=== PATIENT | male | born 2000 | race Caucasian/White ===

== ENCOUNTER 2022-02-03 01:10 | Emergency (ER) | payer SELFPAY ==
[2022-02-03] MEDS ORDERED: KETOROLAC 30 MG/ML VIAL IVP STA (01:33)
[2022-02-03 01:40] LABS: BASOPHILS % (AUTO) 0 % (0-10); EOSINOPHILS # (AUTO) 0.2 10^3/uL (0.0-0.3); EOSINOPHILS % (AUTO) 2 % (0-10); HEMATOCRIT 43 % (40-54); HEMOGLOBIN 14.3 g/dL (13.3-17.7); LYMPHOCYTES # (AUTO) 4.5 10^3/uL (1.0-4.0); LYMPHOCYTES % (AUTO) 47 % (12-44); MEAN CORPUSCULAR HEMOGLOBIN 30 pg (25-34); MEAN CORPUSCULAR HGB CONC 34 g/dL (32-36); MEAN CORPUSCULAR VOLUME 88 fL (80-99); MEAN PLATELET VOLUME 11.1 fL (9.0-12.2); MONOCYTES # (AUTO) 0.6 10^3/uL (0.0-1.0); MONOCYTES % (AUTO) 6 % (0-12); NEUTROPHILS # (AUTO) 4.3 10^3/uL (1.8-7.8); NEUTROPHILS % (AUTO) 45 % (42-75); PLATELET COUNT 260 10^3/uL (130-400); WHITE BLOOD COUNT 9.6 10^3/uL (4.3-11.0)
--- NOTE | 2022-02-03 01:43 | ED Back Pain ---
General Chief Complaint: Back Problems Stated Complaint: VOMITING,ABD PAIN Source of Information: Patient History of Present Illness Date Seen by Provider: Feb 03, 2022 Time Seen by Provider: 01:25 Initial Comments PT ARRIVES VIA POV FROM HOME STATES HE WAS AT WORK AT [employer], AND ABOUT 5 HOURS AGO, HE BEGAN TO HAVE SEVERE SHARP STABBING PAIN IN LEFT FLANK RADIATING TO LLQ AN HOUR AGO, HE BEGAN TO HAVE NAUSEA/VOMITING NO DIARRHEA NO FEVER NO PROBLEMS URINATING, VOIDED JUST PRIOR TO ARRIVAL HAD FELT FINE ALL DAY NO RECENT ILLNESS NO CHRONIC MEDICAL PROBLEMS AND NO DAILY MEDICATIONS PT STATES HE HAS HAD A COUPLE OF EPISODES SIMILAR TO THIS, BUT NOT NEARLY PAINFUL AND DID NOT LAST VERY LONG--NEVER SOUGHT CARE STATES HIS DAD HAS HISTORY OF KIDNEY STONES. Allergies and Home Medications Allergies Coded Allergies: No Known Drug Allergies (Unverified , 02/03/22) Patient Home Medication List Home Medication List Reviewed: Yes Ciprofloxacin HCl (Ciprofloxacin HCl) 500 Mg Tablet, 500 MG PO BID Prescribed by: JAE TOTH on 02/03/22342 Hydrocodone Bit/Acetaminophen (HYDROcodone/APAP 7.5/325 TAB) 1 Ea Tablet, 1 EA PO Q4-6 PRN for PAIN Prescribed by: JAE TOTH on 02/03/22342 Ketorolac Tromethamine (Ketorolac Tromethamine) 10 Mg Tablet, 10 MG PO Q6H Prescribed by: JAE TOTH on 02/03/22342 Ondansetron (Ondansetron Odt) 8 Mg Tab.rapdis, 8 MG PO Q6H Prescribed by: JAE TOTH on 02/03/22342 Tamsulosin HCl (Flomax) 0.4 Mg Cap, 0.4 MG PO DAILY Prescribed by: JAE TOTH on 02/03/22342 Review of Systems Constitutional: diaphoresis, malaise, weakness EENTM: no symptoms reported Respiratory: no symptoms reported Cardiovascular: no symptoms reported Gastrointestinal: see HPI, abdominal pain, nausea, vomiting Genitourinary: see HPI (FLANK PAIN ) Musculoskeletal: see HPI, back pain Skin: no symptoms reported Psychiatric/Neurological: No Symptoms Reported Past Wzadlmd-Tmvsiq-Hvszdh Hx Patient Social History Tobacco Use?: No Use of E-Cig and/or Vaping dev: Yes E-Cig or Vaping type used: Nicotine Use of E-Cig and/or Vaping Rafael: Current Everyday User Substance use?: No Alcohol Use?: No Past Medical History Surgeries: No Respiratory: No Cardiac: No Neurological: No Genitourinary: No Gastrointestinal: No Musculoskeletal: No Endocrine: No HEENT: No Cancer: No Psychosocial: No Integumentary: No Blood Disorders: No Physical Exam Vital Signs Vital Signs - First Documented 02/03/22 01:24 Temp 36.8 Pulse 95 Resp 16 B/P (MAP) 145/97 (113) Pulse Ox 96 O2 Delivery Room Air Capillary Refill : Height, Weight, BMI Height: '" Weight: lbs. oz. kg; BMI Method: General Appearance: WD/WN, Thin, Other (LOOKS ILL--VERY PALE, DIAPHORETIC, SKIN COOL, LETHARGIC, ACTIVELY DRY HEAVING. ) Neck: Normal Inspection Cardiovascular: Regular Rate, Rhythm, No Murmur Respiratory: Lungs Clear Gastrointestinal: Soft, Tenderness (LEFT FLANK TO LLQ TENDERNESS) Back: CVA Tenderness (L) Extremity: Normal Inspection Neurologic/Psychiatric: Alert, Oriented x3, No Motor/Sensory Deficits, deputy director of nursing II- XII Norm as Tested Skin: Cool, Diaphoresis, Pallor Progress/Results/Core Measures Results/Orders Lab Results Laboratory Tests Test 02/03/22 01:30 02/03/22 03:30 Range/Units White Blood Count 9.6 4.3-11.0 10^3/uL Red Blood Count 4.85 4.30-5.52 10^6/uL Hemoglobin 14.3 13.3-17.7 g/dL Hematocrit 43 40-54 % Mean Corpuscular Volume 88 80-99 fL Mean Corpuscular Hemoglobin 30 25-34 pg Mean Corpuscular Hemoglobin Concent 34 32-36 g/dL Red Cell Distribution Width 12.6 10.0-14.5 % Platelet Count 260 130-400 10^3/uL Mean Platelet Volume 11.1 9.0-12.2 fL Immature Granulocyte % (Auto) 0 % Neutrophils (%) (Auto) 45 42-75 % Lymphocytes (%) (Auto) 47 H 12-44 % Monocytes (%) (Auto) 6 0-12 % Eosinophils (%) (Auto) 2 0-10 % Basophils (%) (Auto) 0 0-10 % Neutrophils # (Auto) 4.3 1.8-7.8 10^3/uL Lymphocytes # (Auto) 4.5 H 1.0-4.0 10^3/uL Monocytes # (Auto) 0.6 0.0-1.0 10^3/uL Eosinophils # (Auto) 0.2 0.0-0.3 10^3/uL Basophils # (Auto) 0.0 0.0-0.1 10^3/uL Immature Granulocyte # (Auto) 0.0 0.0-0.1 10^3/uL Sodium Level 143 135-145 MMOL/L Potassium Level 3.1 L 3.6-5.0 MMOL/L Chloride Level 107 98-107 MMOL/L Carbon Dioxide Level 20 L 21-32 MMOL/L Anion Gap 16 H 5-14 MMOL/L Blood Urea Nitrogen 7 7-18 MG/DL Creatinine 1.11 0.60-1.30 MG/DL Estimat Glomerular Filtration Rate 97 BUN/Creatinine Ratio 6 Glucose Level 152 H 70-105 MG/DL Calcium Level 9.7 8.5-10.1 MG/DL Corrected Calcium 8.5-10.1 MG/DL Total Bilirubin 1.9 H 0.1-1.0 MG/DL Aspartate Amino Transf (AST/SGOT) 12 5-34 U/L Alanine Aminotransferase (ALT/SGPT) 29 0-55 U/L Alkaline Phosphatase 58 40-136 U/L Total Protein 7.6 6.4-8.2 GM/DL Albumin 4.9 H 3.2-4.5 GM/DL Amylase Level 29 25-125 U/L Lipase 7 L 8-78 U/L Influenza Type A (RT-PCR) Not Detected Not Detecte Influenza Type B (RT-PCR) Not Detected Not Detecte SARS-CoV-2 RNA (RT-PCR) Not Detected Not Detecte Urine Color YELLOW Urine Clarity CLEAR Urine pH 7.5 5-9 Urine Specific [place] 1.020 1.016-1.022 Urine Protein NEGATIVE NEGATIVE Urine Glucose (UA) TRACE H NEGATIVE Urine Ketones TRACE H NEGATIVE Urine Nitrite NEGATIVE NEGATIVE Urine Bilirubin NEGATIVE NEGATIVE Urine Urobilinogen 0.2 < = 1.0 MG/DL Urine Leukocyte Esterase NEGATIVE NEGATIVE Urine RBC (Auto) 3+ H NEGATIVE Urine RBC 5-10 H /HPF Urine WBC NONE /HPF Urine Squamous Epithelial Cells RARE /HPF Urine Crystals PRESENT H /LPF Urine Amorphous Sediment LARGE SAUNDRA PHOSPHATE H /LPF Urine Bacteria NEGATIVE /HPF Urine Casts NONE /LPF Urine Mucus NEGATIVE /LPF Urine Culture Indicated NO My Orders Orders - JAE TOTH DO Covid 19 Inhouse Test (02/03/22 01:20) Influenza A And B By Pcr (02/03/22 01:20) Isolation Central Supply Req (02/03/22 01:20) Ed Iv/Invasive Line Start (02/03/22 01:33) Ct Abd/Pelvis Wo(Kidney Stone) (02/03/22 01:33) Abdomen/Kub 1view (02/03/22 01:33) Amylase (02/03/22 01:33) Cbc With Automated Diff (02/03/22 01:33) Comprehensive Metabolic Panel (02/03/22 01:33) Lipase (02/03/22 01:33) Ua Culture If Indicated (02/03/22 01:33) Ed Iv/Invasive Line Start (02/03/22 01:33) Lactated Ringers (Lr 1000 Ml Iv Solution (02/03/22 01:45) Ondansetron Injection (Zofran Injectio (02/03/22 01:45) Ketorolac Injection (Toradol Injection) (02/03/22 01:33) Ondansetron Injection (Zofran Injectio (02/03/22 02:30) Fentanyl Inj (Sublimaze Injection) (02/03/22 02:29) Ed Iv/Invasive Line Start (02/03/22 02:30) Lactated Ringers (Lr 1000 Ml Iv Solution (02/03/22 02:30) Tamsulosin Capsule (Flomax Capsule) (02/03/22 03:45) Rx-Hydrocodone/Apap 5-325 Mg (Rx-Vicodin (02/03/22 03:45) Rx-Ondansetron Po (Rx-Zofran Po) (02/03/22 03:44) Medications Given in ED Current Medications Medications Dose Ordered Sig/Gerda Route Start Time Stop Time Status Last Admin Dose Admin Acetaminophen/ Hydrocodone Bitart 1 ea Q4H PRN PO 02/03/22 03:45 02/03/22 04:04 DC 02/03/22 04:01 1 EA Lactated Ringer's 1,000 ml @ 0 mls/hr Q0M ONCE IV 02/03/22 01:45 02/03/22 01:46 DC 02/03/22 01:40 999 MLS/HR Lactated Ringer's 1,000 ml @ 0 mls/hr Q0M ONCE IV 02/03/22 02:30 02/03/22 02:31 DC 02/03/22 02:54 999 MLS/HR Ondansetron HCl 4 mg ONCE ONCE IVP 02/03/22 01:45 02/03/22 01:46 DC 02/03/22 01:40 4 MG Ondansetron HCl 4 mg ONCE ONCE IVP 02/03/22 02:30 02/03/22 02:31 DC 02/03/22 02:53 4 MG Vital Signs/I&O 02/03/22 02/03/22 01:24 04:03 Temp 36.8 36.8 Pulse 95 74 Resp 16 16 B/P (MAP) 145/97 (113) 136/84 Pulse Ox 96 98 O2 Delivery Room Air Room Air Progress Progress Note : Progress Note GIVEN IV FLUIDS, ZOFRAN AND TORADOL--NO SIGNIFICANT RELIEF GIVEN ADDITIONAL ZOFRAN AND FENTANYL WITH IMPROVEMENT IN PAIN AND NAUSEA Diagnostic Imaging Comments KUB--NO ACUTE PROCESS, PENDING RADIOLOGIST REVIEW CT ABDOMEN/PELVIS--PER RADIOLOGIST REPORT AT 0337 Findings: Lung bases are clear. Cardiac contour is normal. Liver shows uniform attenuation. Gallbladder is nondistended. Spleen and GE junction are normal. Stomach and duodenal sweep are unremarkable. Pancreas shows sharp margins. Adrenals are normal. Kidneys show some punctate bilateral calculi these are sub-2 mm size. There is some very mild nephrocalcinosis inferior pole of the left kidney. There is no hydronephrosis. There is a left hydroureter. There is a left obstructive uropathy secondary to a 3 mm stone in the left distal ureter close to the ureterovesical junction. Bladder is underfilled. Nonopacified loops of small bowel are unremarkable. The appendix shows a few granular calcifications but no secondary signs of appendicitis. Large bowel contains fecal material and gas. There is no free air, free fluid or adenopathy. The aorta, iliac and femoral arteries are normal in caliber. Bone windows show no overall gross abnormalities IMPRESSION: 1. Punctate nonobstructing bilateral renal calculi with some minimal left renal nephrocalcinosis. 2. Left obstructive uropathy with mild left hydroureter. This is secondary to a 3 mm stone left distal ureter close to the ureterovesical junction. 3. No evidence of coil cystitis or appendicitis. Additional nonemergent findings as described above. KUB --PER RADIOLOGIST REPORT AT 0340 Bowel gas pattern is normal. There are no pathologic masses calcifications. Lung bases are clear. IMPRESSION: Unremarkable abdomen Reviewed: Reviewed by Me Departure Impression Primary Impression: Calculus of distal left ureter Disposition: HOME, SELF-CARE Condition: Improved Departure-Patient Inst. Decision time for Depature: 03:37 Referrals: NO,LOCAL PHYSICIAN (PCP) Primary Care Physician GILBERT HARRELL MD Patient Instructions: Kidney Stone, Adult ED, How to Strain Your Urine Add. Discharge Instructions: STRAIN ALL URINE--RETURN ANY STONES TO DR. HARRELL'S OFFICE INCREASE YOUR FLUID INTAKE FOLLOW UP WITH DR. HARRELL NEXT WEEK FOR FURTHER CARE--CALL OFFICE TODAY TO SCHEDULE APPOINTMENT. RETURN TO ER IF SYMPTOMS WORSEN All discharge instructions reviewed with patient and/or family. Voiced understanding. Scripts Ondansetron (Ondansetron Odt) 8 Mg Tab.rapdis 8 MG PO Q6H, #15 TAB Prov: JAE TOTH DO 02/03/22 Ketorolac Tromethamine (Ketorolac Tromethamine) 10 Mg Tablet 10 MG PO Q6H for Pain, #15 TAB Prov: MARQUEZ TOTHA K DO 02/03/22 Tamsulosin HCl (Flomax) 0.4 Mg Cap 0.4 MG PO DAILY, #10 CAP Prov: JAE TOTH DO 02/03/22 Hydrocodone Bit/Acetaminophen (HYDROcodone/APAP 7.5/325 TAB) 1 Ea Tablet 1 EA PO Q4-6 PRN for PAIN, #20 TAB Prov: JAE TOTH K DO 02/03/22 Ciprofloxacin HCl (Ciprofloxacin HCl) 500 Mg Tablet 500 MG PO BID, #14 TAB Prov: JAE TOTH K DO 02/03/22 JAE TOTH DO Feb 03, 2022 01:43
[2022-02-03] MEDS ORDERED: LACTATED RINGERS 1,000 ML IV ONE ×2 (01:45→02:30)
[2022-02-03] MEDS ORDERED: ONDANSETRON 4 MG/2 ML (SDV) Z0FRAN IVP ONE ×2 (01:45→02:30)
[2022-02-03 01:56] LABS: ALBUMIN 4.9 GM/DL (3.2-4.5); CHLORIDE 107 MMOL/L (98-107); POTASSIUM 3.1 MMOL/L (3.6-5.0); SODIUM 143 MMOL/L (135-145)
[2022-02-03 01:57] LABS: AMYLASE 29 U/L (25-125); CALCIUM 9.7 MG/DL (8.5-10.1)
[2022-02-03 01:58] LABS: GLUCOSE 152 MG/DL (70-105); TOTAL PROTEIN 7.6 GM/DL (6.4-8.2)
[2022-02-03 01:59] LABS: CARBON DIOXIDE 20 MMOL/L (21-32)
[2022-02-03 02:00] LABS: BILIRUBIN,TOTAL 1.9 MG/DL (0.1-1.0)
[2022-02-03 02:02] LABS: ALKALINE PHOSPHATASE 58 U/L (40-136); CREATININE SERUM 1.11 MG/DL (0.60-1.30); GFR ESTIMATED 97
[2022-02-03 02:03] LABS: BUN/CREATININE RATIO 6
[2022-02-03 02:05] LABS: ALANINE AMINOTRANSFERASE 29 U/L (0-55)
[2022-02-03 02:06] LABS: LIPASE 7 U/L (8-78)
[2022-02-03] MEDS ORDERED: fentaNYL INJ 100 MCG/2 ML AMP IVP STA (02:29)
--- NOTE | 2022-02-03 03:32 | Diagnostic Imaging Report ---
PROCEDURE: CT urinary tract, rule out kidney stone. TECHNIQUE: Multiple contiguous axial images were obtained through the abdomen and pelvis without the use of intravenous contrast. Auto Exposure Controls were utilized during the CT exam to meet ALARA standards for radiation dose reduction. INDICATION: 21-year-old male presents with abdominal pain, nausea and vomiting Comparisons: None. Findings: Lung bases are clear. Cardiac contour is normal. Liver shows uniform attenuation. Gallbladder is nondistended. Spleen and GE junction are normal. Stomach and duodenal sweep are unremarkable. Pancreas shows sharp margins. Adrenals are normal. Kidneys show some punctate bilateral calculi these are sub-2 mm size. There is some very mild nephrocalcinosis inferior pole of the left kidney. There is no hydronephrosis. There is a left hydroureter. There is a left obstructive uropathy secondary to a 3 mm stone in the left distal ureter close to the ureterovesical junction. Bladder is underfilled. Nonopacified loops of small bowel are unremarkable. The appendix shows a few granular calcifications but no secondary signs of appendicitis. Large bowel contains fecal material and gas. There is no free air, free fluid or adenopathy. The aorta, iliac and femoral arteries are normal in caliber. Bone windows show no overall gross abnormalities IMPRESSION: 1. Punctate nonobstructing bilateral renal calculi with some minimal left renal nephrocalcinosis. 2. Left obstructive uropathy with mild left hydroureter. This is secondary to a 3 mm stone left distal ureter close to the ureterovesical junction. 3. No evidence of coil cystitis or appendicitis. Additional nonemergent findings as described above. Dictated by: Dictated on workstation # [id number]
--- NOTE | 2022-02-03 03:40 | Diagnostic Imaging Report ---
Indication: Abdominal pain KUB 1:56 AM Bowel gas pattern is normal. There are no pathologic masses calcifications. Lung bases are clear. IMPRESSION: Unremarkable abdomen Dictated by: Dictated on workstation # [id number]
[2022-02-03 03:42] LABS: BILIRUBIN,URINE NEGATIVE (NEGATIVE); CLARITY,URINE CLEAR; COLOR,URINE YELLOW; GLUCOSE, URINE (UA) TRACE (NEGATIVE); KETONES,URINE TRACE (NEGATIVE); LEUKOCYTE ESTERASE ,URINE NEGATIVE (NEGATIVE); NITRITE,URINE NEGATIVE (NEGATIVE); PH,URINE 7.5 (5-9); PROTEIN,URINE NEGATIVE (NEGATIVE)
[2022-02-03] MEDS ORDERED: TMSL.4C PO (03:43)
[2022-02-03] MEDS ORDERED: ONDA8TAB13 PO (03:43)
[2022-02-03] MEDS ORDERED: HYDR-34 PO (03:43)
[2022-02-03] MEDS ORDERED: CIPR500T5 PO (03:43)
[2022-02-03] MEDS ORDERED: KETO10TA PO (03:43)
[2022-02-03] MEDS ORDERED: RX-ONDANSETRON 4 MG ODT (ZOFRAN) PPK #4 PO STA (03:44)
[2022-02-03] MEDS ORDERED: TAMSULOSIN 0.4 MG (FLOMAX) CAP PO SCH (03:45)
[2022-02-03 04:01] LABS: AMORPHOUS SEDIMENT,UR LARGE AMOR PHOSPHATE /LPF; BACTERIA,URINE NEGATIVE /HPF; SQUAMOUS EPITHELIAL CELL,UR RARE /HPF
[2022-02-03 04:03] VITALS: BP 136/84
== END 2022-02-03 04:04 | disposition home or self-care (01) ==
LOC: EDUNIT# 01:10 → ER 01:15
DX: N20.1 Calculus of ureter (principal); F17.290 Nicotine dependence, other tobacco product, uncomplicated; Z20.822 Contact with and (suspected) exposure to COVID-19; Z28.310 Unvaccinated for COVID-19
CPT/HCPCS: 36415; 74018; 74176; 80053; 81000; 82150; 83690; 85025; 87636